=== PATIENT | female | born 1955 | race Caucasian/White ===

== ENCOUNTER → 2017-01-26 | Outpatient (CLI) | payer OTHER ==
[~2017-01-26] MED LIST: ALBUTEROL17 GM INH; CELEBREX PO; ESTROGEN; PRILOSEC PO; PROZAC PO; SINGULAIR PO; SYNTHROID PO; ZANTAC PO
[2017-01-26 16:00] LABS: POC - CREATININE 1.2 mg/dL (0.44-1.03)
== END | disposition home or self-care (01) ==
LOC: SMRI 13:13
PROVIDERS: Orthopaedic Surgery
DX: M25.562 Pain in left knee (principal)
CPT/HCPCS: 82565

== ENCOUNTER → 2017-01-26 | Outpatient (CLI) | payer OTHER ==
--- NOTE | ~2017-01-26 | MR103 ---
[facility] A Service of [facility] RADIOLOGY TEXT RESULTS PATIENT: JEAN CARLOS TELLO LOCATION: [facility] : 53 UNIT #: [id number] AGE: [address]: ROBLES HERNANDEZ MD SEX: F ORDER DR: [id number] [address] [address] [id number] O MR#: [id number] Acc #: [id number] NAME: JEAN CARLOS TELLO : 1955 SEX: F STUDY DATE/TIME: 01/26/2017 13:26 UNIT: [facility] ROOM: STUDY DESCRIPTION: MR Knee Wo Contrast Lt Attending Physician: Robles Hernandez Referring Physician: Robles Hernandez Ordering Physician: Regan Bishop M.D. Primary Care Physician: Robles Hernandez MRI CENTER REPORT This report is preliminary unless electronic signature is present. EXAM MRI of the left knee, 01/26/17 COMPARISON: Left tibia-fibula radiographs 12/14/[address] [facility], HISTORY Order states left knee pain. To include proximal third tibia shaft. History sheet states left knee pain since 2000. Fell 12/07/2016 with proximal left lower extremity jackman pain. Abnormal x-ray. Chronic bilateral left greater than right knee pain. 3 left knee arthroscopies since 2000 in [place]. There is a minimal effusion with minimal fatty synovial hyperplasia in the lateral suprapatellar bursa compatible with mild lipoma arborescens (most commonly seen in the setting of advanced arthrosis. No popliteal cyst is noted. There is moderately advanced patellofemoral arthrosis with joint space narrowing, osteophyte formation, and multifocal moderate and high-grade chondromalacia. Quadriceps and patellar tendons are intact. There is prominent intrasubstance signal of the anterior cruciate ligament in its proximal portion without discontinuity most suggestive of mucoid degeneration. The appearance is not typical for sprain or tear. Similar intermediate signal is noted in the proximal two-thirds of the PCL. Findings could reflect PCL mucoid degeneration and/or sequela of interstitial PCL injury/partial tear. There is no femoral or tibial detachment or an avulsion fracture. There is lateral compartment arthrosis with osteophyte formation and a STS. [facility] A Service of [facility] RADIOLOGY TEXT RESULTS PATIENT: JEAN CARLOS TELLO LOCATION: [facility] : 53 UNIT #: [id number] AGE: [address]: ROBLES HERNANDEZ MD SEX: F ORDER DR: high-grade apposing chondromalacia of the central weightbearing lateral compartment. There is mild myxoid degeneration of the anterior body horn of the lateral meniscus without a tear. The lateral collateral ligament complex and popliteus tendon are intact. There is advanced medial compartment arthrosis with joint space narrowing, osteophyte formation, and grade 4 weightbearing chondromalacia which also extends into the posterior non-weightbearing medial femoral condyle. There is a severely diminutive truncated posterior body and horn of the medial meniscus with no displaced flap or fragment identified. 3 prior arthroscopies are reported. Findings likely reflect sequela of partial medial meniscectomy. There is myxoid degeneration of the anterior body and horn. The MCL is normal. There is no marrow lesion or fracture. No sizeable loose bodies are noted. Subtle synovitis or debris is noted in the suprapatellar bursa in addition to the mild lipoma arborescens. IMPRESSION 1. Tricompartmental arthrosis detailed above predominates in the medial and patellofemoral compartments. 2. Diminutive truncated posterior body horn medial meniscus, presumably related to partial medial meniscectomy. No displaced flap or fragment is identified. 3. No lateral meniscus tear seen. 4. Mucoid degeneration anterior cruciate ligament. 5. Mucoid degeneration versus some interstitial PCL injury. Mucoid degeneration is favored. 6. Small effusion with subtle synovitis/debris and mild lipoma arborescens. 7. No fracture or loose body. Dictated by... Nikkie Reed M.D. THIS IS AN ELECTRONICALLY VERIFIED REPORT Nikkie Reed M.D. at 01/28/2017 11:47 AM MARTHA/angie TD: 01/27/2017 11:28 JOB #: [id number] MRI CENTER REPORT Page 1 of 1
--- NOTE | ~2017-01-26 | MR107 ---
[facility]. [facility] A Service of [facility] & [facility] RADIOLOGY TEXT RESULTS PATIENT: JEAN CARLOS TELLO LOCATION: [facility] : 53 UNIT #: [id number] AGE: [address]: ROBLES HERNANDEZ MD SEX: F ORDER DR: [id number] [address] [address] [id number] O MR#: [id number] Acc #: [id number] NAME: JEAN CARLOS TELLO : 1955 SEX: F STUDY DATE/TIME: 01/26/2017 14:07 UNIT: [facility] ROOM: STUDY DESCRIPTION: MR Puga Extrem WWo Cont Lt Attending Physician: Abdi Hernandez M.D. Referring Physician: Abdi Hernandez M.D. Ordering Physician: Abdi Hernandez M.D. Primary Care Physician: Abdi Hernandez M.D. MRI CENTER REPORT This report is preliminary unless electronic signature is present. EXAM Left leg MRI without and with contrast. DATE OF EXAM 01/26/2017 HISTORY 61-year-old female with left knee pain since 2000. History of recent fall 12/07/2016. Abnormal bone lesion noted on recent left leg x-ray. COMPARISON Left leg x-rays, 12/14/2016. Left knee MRI, 01/26/2017. TECHNIQUE Multiplanar, multisequence high-field MR imaging of the left leg was performed both pre and post administration of IV gadolinium (20 mm MultiHance). FINDINGS There is a focal, well-circumscribed ovoid lesion in the central metadiaphysis of the proximal tibia. The lesion measures 2.2 x 1.2 cm in cross section and 3.6 cm in CC dimension. The lesion is isointense to muscle on T1-weighted imaging and heterogeneously hyperintense on T2 and STIR weighted imaging. There is some low grade peripheral enhancement of the lesion following administration menstruation of IV gadolinium. No aggressive MRI characteristics. No associated bone marrow edema or cortical destruction. No adjacent soft tissue masses or pathologic fracture. The lesion appears benign and differential considerations could include bone cyst or fibrous dysplasia. There is no evidence of cortical expansion. Metastatic bone lesion, myeloma, or infection are considered less likely given the provided clinical setting. The remainder of the bone marrow signal is within normal limits. Visualized musculature is unremarkable. [facility]. [facility] A Service of [facility] RADIOLOGY TEXT RESULTS PATIENT: JEAN CARLOS TELLO [id number] 53 UNIT #: [id number] AGE: [address]: ROBLES HERNANDEZ MD SEX: F ORDER DR: IMPRESSION Focal bone lesion in the proximal metadiaphysis of the left tibia. Please see detailed description above. No aggressive MRI characteristics, marrow edema, cortical destruction, or pathologic fracture. Differential considerations include benign bone cyst or fibrous dysplasia. Other considerations such as metastatic bone lesion, myeloma, or infection are considered less likely given provided clinical setting. Follow up as clinically warranted. Dictated by... Asher Castorena M.D. THIS IS AN ELECTRONICALLY VERIFIED REPORT Asher Castorena M.D. at 01/27/2017 10:54 PM RALF/cholo TD: 01/27/2017 19:34 JOB #: [id number] MRI CENTER REPORT Page 1 of 1
== END | disposition home or self-care (01) ==
LOC: SMRI 13:17
DX: M17.0 Bilateral primary osteoarthritis of knee (principal); M85.69 Other cyst of bone, multiple sites; M79.606 Pain in leg, unspecified; S83.512A Sprain of anterior cruciate ligament of left knee, initial encounter; M17.12 Unilateral primary osteoarthritis, left knee; M25.462 Effusion, left knee; M89.9 Disorder of bone, unspecified; Z98.890 Other specified postprocedural states
CPT/HCPCS: 73720; 73721; A9581

== ENCOUNTER → 2017-02-19 | Outpatient (CLI) | payer OTHER ==
--- NOTE | ~2017-02-19 | MR104 ---
[facility] A Service of [facility] RADIOLOGY TEXT RESULTS PATIENT: JEAN CARLOS TELLO LOCATION: [facility] : 53 UNIT #: [id number] AGE: [address]: Regan Bishop MD SEX: F ORDER DR: [id number] [address] [address] [id number] O MR#: [id number] Acc #: [id number] NAME: JEAN CARLOS TELLO : 1955 SEX: F STUDY DATE/TIME: 02/19/2017 13:27 UNIT: [facility] ROOM: STUDY DESCRIPTION: MR Knee Wo Contrast Rt Attending Physician: Regan Bishop M.D. Referring Physician: Regan Bishop M.D. Ordering Physician: Regan Bishop M.D. Primary Care Physician: Abdi Rubin M.D. MRI CENTER REPORT This report is preliminary unless electronic signature is present. EXAM MRI right knee, 02/19/2017 COMPARISON No correlative studies. HISTORY Order states right knee pain. History sheet states diffuse knee pain for years. History of osteoarthritis. Unable to squad. Decreased range of motion. Two arthroscopic surgeries reportedly in [place]. FINDINGS There is a minimal joint effusion with signal suggestive of subtle synovitis. There is no popliteal cyst. Patellofemoral compartment shows arthrosis with joint space narrowing, prominent osteophyte formation, and there is moderate and high-grade chondromalacia of most prominently affecting the femoral trochlear groove. Quadriceps and patellar tendons are intact. There is mucoid degeneration of the posterior cruciate ligament and to a lesser degree the anterior cruciate ligament. There is lateral compartment arthrosis with joint space narrowing, hypertrophic osteophyte formation, and posterior weightbearing femoral and tibial high-grade chondromalacia. Sharp truncation of the posterior body and horn of the lateral meniscus is suggestive of partial meniscectomy. There is myxoid degeneration of the lateral meniscus without a discrete tear. There is moderately advanced arthritic change of the medial compartment with joint space narrowing, extensive weight bearing grade 4 chondromalacia, and osteophyte formation. Diminutive size and truncation STS. [facility] A Service of [facility] RADIOLOGY TEXT RESULTS PATIENT: JEAN CARLOS TELLO LOCATION: [facility] : 53 UNIT #: [id number] AGE: [address]: Regan Bishop MD SEX: F ORDER DR: of the posterior body and horn of the medial meniscus suggests partial meniscectomy. There is also lack of definition of the posterior root attachment suggestive of root detachment or tear. Age is uncertain. Collateral ligaments and popliteus tendon are intact. There is no marrow lesion, fracture, or sizeable loose body. There is a mild marrow edema which appears to be enthesopathic at the femoral origin of the posterior cruciate ligament. IMPRESSION 1. Tricompartmental arthrosis predominates in the medial and patellofemoral compartments. 2. Probable partial medial and lateral meniscectomies given meniscal morphology. Resection versus detachment posterior root of the medial meniscus. 3. Mucoid degeneration of the cruciate ligaments with enthesopathic edema of the femoral origin of the PCL. 4. Minimal effusion with subtle synovitis. 5. No fracture, significant subarticular edema, or sizeable loose body. Dictated by... Nikkie Reed M.D. THIS IS AN ELECTRONICALLY VERIFIED REPORT Nikkie Reed M.D. at 02/22/2017 10:50 AM Ronit TD: 02/22/2017 09:53 JOB #: [id number] MRI CENTER REPORT Page 1 of 1
== END | disposition home or self-care (01) ==
LOC: SMRI 08:22
DX: M25.561 Pain in right knee (principal); M17.11 Unilateral primary osteoarthritis, right knee; M25.461 Effusion, right knee; M65.861 Other synovitis and tenosynovitis, right lower leg
CPT/HCPCS: 73721

== ENCOUNTER → 2017-04-13 | Outpatient (CLI) | payer OTHER ==
--- NOTE | ~2017-04-13 | MY11 ---
[facility]. [facility] A Service of [facility] & [facility] RADIOLOGY TEXT RESULTS PATIENT: JEAN CARLOS TELLO LOCATION: [facility] : 53 UNIT #: [id number] AGE: [address]: ROBLES HERNANDEZ MD SEX: F ORDER DR: [id number] [address] [address] [id number] O MR#: [id number] Acc #: [id number] NAME: JEAN CARLOS TELLO : 1955 SEX: F STUDY DATE/TIME: 04/13/2017 11:12 UNIT: [facility] ROOM: STUDY DESCRIPTION: MY Mammogram Screening Dig Taj Attending Physician: Abdi Hernandez M.D. Referring Physician: Abdi Hernandez M.D. Ordering Physician: Abdi Hernandez M.D. Primary Care Physician: Abdi Hernandez M.D. MEDICAL IMAGING REPORT This report is preliminary unless electronic signature is present. EXAM Digital screening mammogram, 04/13/2017, [facility]. HISTORY 62-year-old woman positive family history, paternal grandmother postmenopausal. History of ovarian cancer in grandmother as well. Prior reduction mammoplasties. New baseline. COMPARISON None available. Prior mammograms over 10 years ago. FINDINGS Digital imaging of each breast was completed utilizing screening protocol. Review includes FDA-approved CAD device. Breast parenchyma is fatty replaced bilaterally. There are 2 subcentimeter nodules identified in the right breast. The smaller nodule measures approximately 4 mm and is centrally located and well circumscribed. The second nodule projecting lower inner right breast location measures approximately 6 mm and on the craniocaudal view has a somewhat stellate appearance. In the absence of prior mammograms, additional right breast imaging is indicated. This would include a true lateral projection with a high-resolution spot compression views. Targeted ultrasound will be performed if indicated at the time. Left breast appears negative. IMPRESSION Incomplete mammographic evaluation. Additional right breast imaging is indicated. See complete report with recommendations. Patients over the age of 40 are entered into a reminder system with target due date for the next mammogram. A result letter will also be sent to the patient. BIRADS: 0 Incomplete; Need additional imaging evaluation and/or prior STS. [facility] A Service of [facility] & [facility] RADIOLOGY TEXT RESULTS PATIENT: JEAN CARLOS TELLO LOCATION: [facility] : 53 UNIT #: [id number] AGE: [address]: ROBLES HERNANDEZ MD SEX: F ORDER DR: mammograms for comparison. STAT * RESULT Dictated by... Cesar Delaney M.D. THIS IS AN ELECTRONICALLY VERIFIED REPORT Cesar Delaney M.D. at 04/13/2017 12:13 PM BRYON/hoang TD: 04/13/2017 11:12 JOB #: [id number] MEDICAL IMAGING REPORT Page 1 of 1
== END | disposition home or self-care (01) ==
LOC: SMAM 10:33
DX: Z12.31 Encounter for screening mammogram for malignant neoplasm of breast (principal); Z80.3 Family history of malignant neoplasm of breast; Z98.890 Other specified postprocedural states
CPT/HCPCS: G0202

== ENCOUNTER → 2017-04-20 | Outpatient (CLI) | payer OTHER ==
--- NOTE | ~2017-04-20 | US24 ---
[facility] A Service of [facility] RADIOLOGY TEXT RESULTS PATIENT: JEAN CARLOS DOTSON LOCATION: [facility] : 53 UNIT #: [id number] AGE: [address]: ROBLES HERNANDEZ MD SEX: F ORDER DR: [id number] [facility] [address] [place], [place] [address] [id number] O MR#: [id number] Acc #: [id number] NAME: JEAN CARLOS DOTSON : 1955 SEX: F STUDY DATE/TIME: 04/20/2017 14:28 UNIT: [facility] ROOM: STUDY DESCRIPTION: US Breast Unilateral Attending Physician: Abdi Hernandez M.D. Referring Physician: Abdi Hernandez M.D. Ordering Physician: Abdi Hernandez M.D. Primary Care Physician: Abdi Hernandez M.D. MEDICAL IMAGING REPORT This report is preliminary unless electronic signature is present EXAM Right breast ultrasound. INDICATIONS Two breast masses on mammography. PROCEDURE Olsen-scale and Doppler imaging of the subareolar right breast and lower inner quadrant of the right breast. COMPARISON Concurrently performed diagnostic mammogram. FINDINGS/IMPRESSION Refer to the separately dictated diagnostic mammogram for workup, findings and recommendations. Patients over the age of 40 are entered into a reminder system with target due date for the next mammogram. A result letter will also be sent to the patient. BIRADS: 4 Suspicious abnormality; biopsy should be considered. Dictated by... Drake Min M.D. THIS IS AN ELECTRONICALLY VERIFIED REPORT Drake Min M.D. at 04/22/2017 6:59 AM YOLETTE/cholo TD: 04/20/2017 18:24 [facility] A Service [facility] RADIOLOGY TEXT RESULTS PATIENT: JEAN CARLOS DOTSON [id number] 53 UNIT #: [id number] AGE: [address]: ROBLES HERNANDEZ MD SEX: F ORDER DR: JOB #: [id number] MEDICAL IMAGING REPORT Page 1 of 1 COPY
--- NOTE | ~2017-04-20 | US200 ---
[facility] A Service of [facility] RADIOLOGY TEXT RESULTS PATIENT: JEAN CARLOS DOTSON LOCATION: [facility] : 53 UNIT #: [id number] AGE: [address]: ROBLES HERNANDEZ MD SEX: F ORDER DR: [id number] [facility] [address] [place], [place] [address] [id number] O MR#: [id number] Acc #: [id number] NAME: JEAN CARLOS DOTSON : 1955 SEX: F STUDY DATE/TIME: 04/20/2017 15:20 UNIT: [facility] ROOM: STUDY DESCRIPTION: US Breast Guided Bx 1st Lesion Attending Physician: Abdi Hernandez M.D. Referring Physician: Abdi Hernandez M.D. Ordering Physician: Abdi Hernandez M.D. Primary Care Physician: Abdi Hernandez M.D. MEDICAL IMAGING REPORT This report is preliminary unless electronic signature is present REVISED REPORT See addendum EXAM Ultrasound-guided right breast core biopsy INDICATIONS Right breast mass. PROCEDURE Following discussion of the procedure, including potential risk and benefit, informed consent was obtained, the patient's questions were answered. The patient was brought to the ultrasound suite. Call to order/ time out was performed. Preliminary imaging identifies the mass in the lower inner quadrant of the right breast. Skin overlying the mass was prepped and draped using full sterile technique. Skin and overlying soft tissues were anesthetized with buffered lidocaine. Then under ultrasound guidance, 2 core samples were obtained using automated core biopsy device. Samples were submitted to pathology per protocol. Then using ultrasound guidance, a marker clip was placed in the lesion. Permanent images were stored. No immediate complication. IMPRESSION Ultrasound-guided core biopsy of a hypoechoic mass in the right breast, lower inner quadrant. No immediate complication. The post-biopsy mammogram shows the marker clip in the area of concern. Dictated by... Drake Min M.D. THIS IS AN ELECTRONICALLY VERIFIED REPORT [facility]. [facility] A Service of [facility] & [facility] RADIOLOGY TEXT RESULTS PATIENT: JEAN CARLOS DOTSON LOCATION: [facility] : 53 UNIT #: [id number] AGE: [address]: ROBLES HERNANDEZ MD SEX: F ORDER DR: Drake Min M.D. at 04/22/2017 7:00 AM EED/pcl TD: 04/20/2017 18:21 JOB #: [id number] EXAM Ultrasound-guided right breast core biopsy. DATE OF SERVICE 04/20/2017 ADDENDUM Pathology is available and significant for infiltrating ductal carcinoma. Findings are concordant with pathology results. Dictated by... Drake Min M.D. THIS IS AN ELECTRONICALLY VERIFIED REPORT Drake Min M.D. at 04/29/2017 7:09 AM YOLETTE/cholo TD: 04/28/2017 23:39 JOB #: [id number] CC: Dominick/cheyanne Please Delete MEDICAL IMAGING REPORT Page 1 of 1 COPY
--- NOTE | ~2017-04-20 | MY25 ---
[facility] A Service of [facility] & [facility] RADIOLOGY TEXT RESULTS PATIENT: JEAN CARLOS DOTSON LOCATION: [facility] : 51 UNIT #: [id number] AGE: [address]: ROBLES HERNANDEZ MD SEX: F ORDER DR: [id number] [facility] [address] [place], [place] [address] [id number] O MR#: [id number] Acc #: [id number] NAME: JEAN CARLOS DOTSON : 1955 SEX: F STUDY DATE/TIME: 04/20/2017 14:17 UNIT: [facility] ROOM: STUDY DESCRIPTION: [facility] W/ CAD UNI RT Attending Physician: Abdi Hernandez M.D. Referring Physician: Abdi Hernandez M.D. Ordering Physician: Abdi Hernandez M.D. Primary Care Physician: Abdi Hernandez M.D. MEDICAL IMAGING REPORT This report is preliminary unless electronic signature is present EXAM Right digital diagnostic mammogram. INDICATIONS Two small breast masses noted on screening mammography. PROCEDURE True lateral view of the right breast. Spot compression views of the right breast in the CC and MLO projections. Images obtained on a digital mammography unit. COMPARISON 04/13/2017 FINDINGS There is a 6 mm spiculated mass in the lower inner quadrant of the right breast. The previously demonstrated lesion in the subareolar right breast also faintly persists and measures approximately 5 mm. No suspicious calcification. Concurrently performed right breast ultrasound fails to identify the subareolar mass. There is a hypoechoic mass that correlates with the lower inner quadrant mass. This mass is seen in the lower inner quadrant of the right breast and has spiculated margins and is hypoechoic. IMPRESSION 1. Hypoechoic 6 mm spiculated mass in the lower inner quadrant of the right breast is suspicious. Recommend ultrasound-guided core biopsy. (The patient underwent ultrasound-guided core biopsy following this procedure on the same day. Refer to that dictation for procedural details). A 5 mm persistent mass in the subareolar right breast was not seen by ultrasound. Recommend continued attention to this abnormality on a 6-month follow-up diagnostic mammogram. [facility] A Service of [facility] RADIOLOGY TEXT RESULTS PATIENT: JEAN CARLOS DOTSON LOCATION: [facility] : 53 UNIT #: [id number] AGE: [address]: ROBLES HERNANDEZ MD SEX: F ORDER DR: 2. BIRADS 4 suspicious. Patients over the age of 40 are entered into a reminder system with target due date for the next mammogram. A result letter will also be sent to the patient. BIRADS: 4 Suspicious abnormality; biopsy should be considered. Dictated by... Drake Min M.D. THIS IS AN ELECTRONICALLY VERIFIED REPORT Drake Min M.D. at 04/22/2017 6:59 AM YOLETTE/cholo TD: 04/20/2017 18:21 JOB #: [id number] MEDICAL IMAGING REPORT Page 1 of 1 COPY
== END | disposition home or self-care (01) ==
LOC: CMAM 13:53
DX: C50.911 Malignant neoplasm of unspecified site of right female breast (principal)
CPT/HCPCS: 76641; 88305; G0204; G0206